=== PATIENT | male | born 1955 | race African-American/Black ===

== ENCOUNTER 2019-08-03 16:44 | Inpatient (IN) | payer MEDICAID ==
[~2019-08-03] VITALS: Ht 172.7 cm; Wt 202.3 kg
[2019-08-03] MEDS ORDERED: BACITRACIN 15GM TUBE TOP ONE (18:30)
[2019-08-03 18:40] LABS: HEMATOCRIT. 38.7 % (42.0-52.0); HEMOGLOBIN. 12.7 g/dL (14.0-18.0); LYMPHOCYTES % 22.1 % (20.0-50.0); MEAN CORPUSCULAR HEMOGLOBIN 27.9 pg (28.0-32.0); MEAN CORPUSCULAR VOLUME 84.8 fL (80.0-94.0); MEAN PLATELET VOLUME 8.4 fl (7.4-10.4); MONOCYTES % 8.4 % (2.0-8.0); NEUTROPHILS % 60.5 % (40.0-76.0); PLATELET 327 x1000/uL (130-400); RED BLOOD CELL COUNT 4.57 mill/uL (4.7-6.1); RED CELL DISTRIBUTION WIDTH 14.7 % (11.6-14.6)
[2019-08-03 23:43] LABS: CHLORIDE 107 mEq/L (98-107)
[2019-08-04 09:00] VITALS: BP 143/80
[2019-08-04] MEDS ORDERED: CLONIDINE 0.1MG TABLET PO PRN (09:30)
[2019-08-04] MEDS ORDERED: IPRATROPIUM/ALBUTEROL 0.5-3(2.5)MG/3ML NEB HHN PRN (09:30)
[2019-08-04] MEDS ORDERED: GUAIFENESIN 200MG/10ML SUGAR FREE UDC PO PRN (09:30)
[2019-08-04] MEDS ORDERED: DIPHENHYDRAMINE 50MG/ML VIAL IV PRN (09:30)
[2019-08-04] MEDS ORDERED: ONDANSETRON HCL 4MG/2ML INJ IV PRN (09:30)
[2019-08-04] MEDS ORDERED: ACETAMINOPHEN 325MG TABLET PO PRN (09:30)
[2019-08-04] MEDS: BLOOD SUGAR DIAGNOSTIC STRIP TEST SCH ×4 (10:11→20:50)
[2019-08-04] MEDS: ENOXAPARIN 40MG/0.4ML SYR SUBCUT SCH ×2 (10:11→21:24)
[2019-08-04 11:41] LABS: PHOSPHORUS 2.8 mg/dL (2.5-4.9)
[2019-08-04 12:00] VITALS: BP 141/75
[2019-08-04 13:02] LABS: TOTAL IRON BINDING CAPACITY 193 ug/dL (250-450)
[2019-08-04 15:14] LABS: BASOPHILS % 3.5 % (0.0-2.0); EOSINOPHILS % 9.2 % (0.0-5.0); HEMOGLOBIN. 12.7 g/dL (14.0-18.0); MEAN CORPUSCULAR HEMOGLOBIN 27.7 pg (28.0-32.0); MEAN PLATELET VOLUME 8.6 fl (7.4-10.4); NEUTROPHILS % 52.3 % (40.0-76.0); PLATELET 238 x1000/uL (130-400); RED BLOOD CELL COUNT 4.59 mill/uL (4.7-6.1); RED CELL DISTRIBUTION WIDTH 14.6 % (11.6-14.6)
[2019-08-04 15:21] LABS: CHLORIDE 109 mEq/L (98-107)
[2019-08-04 15:29] LABS: CREATINE KINASE 85 IU/L (39-308); CREATINE KINASE MB FRACTION < 1.0 ng/mL (0.5-3.6)
[2019-08-04 16:00] VITALS: BP 124/61
[2019-08-04] MEDS: FUROSEMIDE 40MG/4ML VIAL IVP SCH (16:41)
[2019-08-04] MEDS: ASPIRIN 81MG EC TABLET PO SCH (16:42)
[2019-08-04] MEDS: POTASSIUM CHLORIDE 20MEQ TABLET SR PO SCH (16:42)
[2019-08-04] MEDS: LOSARTAN POTASSIUM 50 MG TABLET PO SCH (16:42)
[2019-08-04 19:48] LABS: CLARITY URINE CLEAR (CLEAR); COLOR URINE YELLOW (YELLOW); KETONES URINE NEGATIVE (NEGATIVE); LEUKOCYTE ESTERASE URINE NEGATIVE (NEGATIVE); NITRITE URINE NEGATIVE (NEGATIVE); OCCULT BLOOD URINE NEGATIVE (NEGATIVE); PH URINE 7.5 (4.5-8.0); PROTEIN URINE NEGATIVE (NEGATIVE); SPECIFIC GRAVITY URINE 1.004 (1.005-1.030)
[2019-08-04 20:00] VITALS: BP 115/67
[2019-08-05] VITALS: BP 140/73
[2019-08-05 04:00] VITALS: BP 149/75
[2019-08-05] MEDS: BLOOD SUGAR DIAGNOSTIC STRIP TEST SCH ×4 (06:07→21:14)
[2019-08-05 07:21] LABS: EOSINOPHILS % 9.2 % (0.0-5.0); HEMATOCRIT. 34.4 % (42.0-52.0); HEMOGLOBIN. 11.5 g/dL (14.0-18.0); MEAN CORPUSCULAR HEMOGLOBIN 27.9 pg (28.0-32.0); MEAN CORPUSCULAR VOLUME 83.9 fL (80.0-94.0); MEAN PLATELET VOLUME 7.9 fl (7.4-10.4); MONOCYTES % 10.8 % (2.0-8.0); PLATELET 253 x1000/uL (130-400); RED CELL DISTRIBUTION WIDTH 14.5 % (11.6-14.6)
[2019-08-05 07:27] LABS: CHLORIDE 107 mEq/L (98-107)
[2019-08-05 07:43] LABS: LDL CHOLESTEROL 91 mg/dL (5-100)
[2019-08-05 07:44] LABS: HDL CHOLESTEROL 40 mg/dL (40-59)
[2019-08-05 08:00] VITALS: BP 141/73
[2019-08-05] MEDS: POTASSIUM CHLORIDE 20MEQ TABLET SR PO SCH (10:10)
[2019-08-05] MEDS: ASPIRIN 81MG EC TABLET PO SCH (10:10)
[2019-08-05] MEDS: LOSARTAN POTASSIUM 50 MG TABLET PO SCH (10:10)
[2019-08-05] MEDS: ENOXAPARIN 40MG/0.4ML SYR SUBCUT SCH ×2 (10:11→21:14)
[2019-08-05] MEDS: FUROSEMIDE 40MG/4ML VIAL IVP SCH ×2 (10:12→17:00)
[2019-08-05 12:00] VITALS: BP 156/72
[2019-08-05 16:00] VITALS: BP 138/69
[2019-08-05 20:00] VITALS: BP 123/77
[2019-08-06] VITALS: BP 159/69
[2019-08-06 04:00] VITALS: BP 155/77
[2019-08-06] MEDS: BLOOD SUGAR DIAGNOSTIC STRIP TEST SCH ×3 (06:18→17:21)
[2019-08-06 08:26] VITALS: BP 168/86
[2019-08-06 08:32] LABS: BASOPHILS % 0.8 % (0.0-2.0); EOSINOPHILS % 7.4 % (0.0-5.0); HEMATOCRIT. 36.7 % (42.0-52.0); HEMOGLOBIN. 11.9 g/dL (14.0-18.0); LYMPHOCYTES % 31.2 % (20.0-50.0); MEAN CORPUSCULAR HEMOGLOBIN 27.3 pg (28.0-32.0); MEAN CORPUSCULAR VOLUME 84.1 fL (80.0-94.0); MEAN PLATELET VOLUME 7.4 fl (7.4-10.4); NEUTROPHILS % 48.6 % (40.0-76.0); PLATELET 264 x1000/uL (130-400); RED BLOOD CELL COUNT 4.37 mill/uL (4.7-6.1); RED CELL DISTRIBUTION WIDTH 14.6 % (11.6-14.6)
[2019-08-06] MEDS: ASPIRIN 81MG EC TABLET PO SCH (08:34)
[2019-08-06] MEDS: POTASSIUM CHLORIDE 20MEQ TABLET SR PO SCH (08:35)
[2019-08-06] MEDS: LOSARTAN POTASSIUM 50 MG TABLET PO SCH (08:35)
[2019-08-06] MEDS: ENOXAPARIN 40MG/0.4ML SYR SUBCUT SCH (08:36)
[2019-08-06 08:40] LABS: CHLORIDE 105 mEq/L (98-107)
[2019-08-06] MEDS: FUROSEMIDE 40MG/4ML VIAL IVP SCH (08:40)
[2019-08-06 08:45] LABS: PHOSPHORUS 2.7 mg/dL (2.5-4.9)
[2019-08-06] MEDS ORDERED: AMLODIPINE 5MG TABLET PO SCH (11:00)
[2019-08-06 12:00] VITALS: BP 145/84
[2019-08-06 16:00] VITALS: BP 129/68
[2019-08-06 16:22] VITALS: BP 129/68
[2019-08-07] MEDS ORDERED: FUROSEMIDE 40MG/4ML VIAL IVP SCH (09:00)
== END 2019-08-06 17:55 | disposition home or self-care (01) | DRG 194 ==
LOC: ER 16:44 → 5WST 08-04 00:20 → EDBEDREQTM 08-04 00:22 → EDBEDREQDT 08-04 00:22 → EDBEDREQ 08-04 00:22 → ENRESERV 08-04 07:16 → 5WST 08-05 22:25
PROVIDERS: ADMIT Internal Medicine; ATTEND Internal Medicine
DX: I11.0 Hypertensive heart disease with heart failure (principal); L89.311 Pressure ulcer of right buttock, stage 1; E46 Unspecified protein-calorie malnutrition; E66.01 Morbid (severe) obesity due to excess calories; L89.321 Pressure ulcer of left buttock, stage 1; F12.90 Cannabis use, unspecified, uncomplicated; D50.9 Iron deficiency anemia, unspecified; D72.821 Monocytosis (symptomatic); I50.33 Acute on chronic diastolic (congestive) heart failure; E16.2 Hypoglycemia, unspecified; I87.2 Venous insufficiency (chronic) (peripheral); F17.210 Nicotine dependence, cigarettes, uncomplicated; Z71.3 Dietary counseling and surveillance; Z91.19 Patient's noncompliance with other medical treatment and regimen; Z74.01 Bed confinement status; Z68.44 Body mass index [BMI] 60.0-69.9, adult; Z71.6 Tobacco abuse counseling
CPT/HCPCS: 36415; 71045; 80048; 80053; 80061; 81003; 82550; 82553; 82728; 82962; 83540; 83550; 83735; 83880; 84100; 84443; 84484; 85025; 93005; 93306; 93970; 97161; 97166; 99285; J1650; J1940